=== PATIENT | female | born 1945 | race Caucasian/White ===

== ENCOUNTER 2016-05-21 10:35 | Day surgery (SDC) | payer OTHER ==
[2016-05-21] MEDS ORDERED: LR 1,000 ML IV ONE (11:19)
[2016-05-21] MEDS ORDERED: LIDOCAINE 1% 5 ML SDV ID PRN (11:19)
[2016-05-21] MEDS ORDERED: PROPOFOL 200 MG/20 ML VIAL ONE ×2 (12:05)
--- NOTE | 2016-05-21 21:23 | GPN ---
[f rep st] PROCEDURE NOTE DATE OF PROCEDURE: 05/21/2016 PROCEDURE PERFORMED: Colonoscopy with biopsy and polypectomy. INSTRUMENT USED: Olympus pediatric colonoscope. MEDICINES GIVEN: Monitored anesthesia care per the anesthesiologist. INDICATIONS: Patient is a 70-year-old due for screening colonoscopy. She has a history of failed co lonoscopy 10 years ago due to severe diverticulosis. A barium enema was normal at that time. She is now overdue for screening. Prior to procedure, exam was performed, including auscultation of heart and lungs, within normal limits. Patient's mental status is appropriate. Procedure was explained, i ncluding the risks of bleeding, perforation, and incomplete colonoscopy. She understands that there could be increased risk because of her history of having difficult procedure in the past. Risk of an esthesia was also explained. Patient gave her informed consent. OPERATIVE FINDINGS: Patient was placed in left lower decubitus position. Medicines were given via t anesthesiologist to achieve adequate sedation. Entrance through the rectum, advanced by direct vi sualization, which was technically difficult because of acute angulation, tortuous colon with multipl e diverticula, somewhat immobile colon, but with water insufflation, loop withdrawal and pressure, it was able to reach the cecum identified by the presence of ileocecal valve, appendiceal orifice, and the confluence of the taenia. From this area, the scope was slowly withdrawn with inspection of colo vicente mucosa. The prep was adequate for examination. Multiple diverticula were seen throughout the colon, but primarily in the sigmoid and descending. A polyp was seen in the sigmoid colon, measuring approximately 5 mm. This was removed by cold biopsy. It may, in fact, have been the edge of a diverticulum. A 2nd polyp was seen in the rectum, measurin g 6 mm, removed by cold biopsy, and a 3rd polyp was seen at the proximal rectum. It was pedunculated , measuring approximately 9 mm, removed by a hot snare with no bleeding. Retroflexion was normal. S cope was removed from the patient, who tolerated procedure well. Time of procedure was approximately 40 minutes. ASSESSMENT: 1. Three colon polyps as described above. 2. Significant diverticulosis. PLAN: Will await path of her colon polyps. If 3 or more polyps are adenomas, then recommend repeat colonoscopy with anesthesia in 3 years. If one or two, then repeat colonoscopy in 5 years. If no po lyp has adenomatous tissue, then repeat colonoscopy in 10 years. Recommend high-fiber diet. Recomme nd no NSAIDs for the next week, post hot snare. Thank you for this consult. /[id number]/MODL
== END 2016-05-21 14:15 | disposition home or self-care (01) ==
LOC: FSGY 10:35 → EEVIPCON 12:15 → FSGY 14:15
PROVIDERS: ATTEND Internal Medicine Gastroenterology
PROC: 0DBP8ZX Excision of Rectum, Via Natural or Artificial Opening Endoscopic, Diagnostic (ICD-10-PCS; 2016-05-21)
PROC: 0DBP8ZX Excision of Rectum, Via Natural or Artificial Opening Endoscopic, Diagnostic (ICD-10-PCS; 2016-05-21)
PROC: 0DBN8ZX Excision of Sigmoid Colon, Via Natural or Artificial Opening Endoscopic, Diagnostic (ICD-10-PCS; principal; 2016-05-21 12:15)
DX: Z12.11 Encounter for screening for malignant neoplasm of colon (principal); D12.5 Benign neoplasm of sigmoid colon; K62.1 Rectal polyp; K57.32 Diverticulitis of large intestine without perforation or abscess without bleeding; I10 Essential (primary) hypertension
CPT/HCPCS: J2704

== ENCOUNTER 2016-08-30 23:50 | Emergency (ER) | payer OTHER ==
[2016-08-31] MEDS ORDERED: NS 1,000 ML IV ONE (00:26)
[2016-08-31 00:30] LABS: % IMMATURE GRANULYOCYTES 0.4 % (0.0-1.1); ABSOLUTE IMMATURE GRANULOCYTES 0.06 10^3/uL (0.00-0.10); ADD DIFF? NO; ADD MORPH? NO; ADD SCAN? NO; ATYPICAL LYMPHOCYTE FLAG 20 (0-99); FRAGMENT RBC FLAG 0 (0-99); HEMATOCRIT 40.7 % (38.0-47.0); HEMOGLOBIN 14.1 g/dL (12.6-16.3); LEFT SHIFT FLG 0 (0-99); LIPEMIA HEMOLYSIS FLAG 90 (0-99); MEAN CELL HEMOGLOBIN 30.1 pg (27.9-34.1); MEAN CELL HEMOGLOBIN CONCENTR. 34.6 g/dL (32.4-36.7); MEAN CELL VOLUME 86.8 fL (81.5-99.8); MEAN PLATELET VOLUME 8.9 fL (8.7-11.7); PLATELET CLUMPS FLAG 0 (0-99); PLATELET COUNT 286 10^3/uL (150-400); RED BLOOD CELL COUNT 4.69 10^6/uL (4.18-5.33); RED CELL DISTRIBUTION WIDTH 13.3 % (11.5-15.2)
[2016-08-31 00:53] LABS: ANION GAP 13 mEq/L (8-16); CALCIUM 9.4 mg/dL (8.5-10.4); CARBON DIOXIDE 25 mEq/l (22-31); CHLORIDE 104 mEq/L (97-110); CREATININE 0.7 mg/dL (0.6-1.0); GLOMERULAR FILTRATION RATE > 60; GLUCOSE 127 mg/dL (70-100); POTASSIUM 4.5 mEq/L (3.5-5.2); SODIUM 142 mEq/L (134-144)
[2016-08-31] MEDS ORDERED: IOPAMIDOL (ISOVUE-300) 100 ML BTL ONE (00:57)
[2016-08-31] MEDS ORDERED: fentaNYL 100 MCG/2 ML INJ IVP ONE (01:39)
--- NOTE | 2016-08-31 02:19 | EDPHY ---
H & P Stated Complaint: abd pain hx of divorticulitis Time Seen by Provider: 08/31/16 00:03 HPI/ROS: Chief Complaint: Abdominal pain HPI: 71-year-old woman with a history of diverticulosis and diverticulitis in the past presenting with lower abdominal pain for the last week, feeling bloated. Patient states she has been having which she thought were increasing gas pains for the last couple nights. Has had decreased bowel movements. Has had subjective fever home. Patient states that feels like her prior episodes of diverticulitis. Has a constipation, no diarrhea. No nausea or vomiting. Pain is described as a 5/10. ROS: 10 point Review of Systems is negative except as noted in the HPI. PMH: Hypertension, partial small-bowel obstruction, diverticulitis Surgeries: Bilateral hips, Appendectomy, tubal ligation Medications: Lisinopril, diltiazem Allergies: No known drug allergies Social History: No smoking, occasional alcohol, no recreational drug use Family History: non-contributory Physical Exam: Gen: Awake, Alert, No Distress HEENT: Nose: no rhinorrhea Eyes: PERRLA, EOMI Mouth: Moist mucosa Neck: Supple, no JVD Chest: nontender, lungs clear to auscultation Heart: S1, S2 normal, no murmur Abd: Soft, moderate left lower and middle abdominal pain to palpation, mild guarding, voluntary Back: no CVA tenderness, no midline tenderness Ext: no edema, non-tender Skin: no rash Neuro: CN II-XII intact, Sensation grossly intact, Strength 5/5 in bilateral upper and lower extremities - Personal History Current Tetanus/Diphtheria Vaccine: Yes Current Tetanus Diphtheria and Acellular Pertussis (TDAP): Yes - Medical/Surgical History Hx Asthma: No Hx Chronic Respiratory Disease: No Hx Diabetes: No Hx Cardiac Disease: No Hx Renal Disease: No Hx Cirrhosis: No Hx Alcoholism: No Hx HIV/AIDS: No Hx Splenectomy or Spleen Trauma: No Other PMH: bilat hip replacements, HTN,. divorticulitis - Social History Smoking Status: Former smoker Constitutional: Initial Vital Signs Temperature (C) 37.2 C 08/30/16 23:53 Heart Rate 107 H 08/30/16 23:53 Respiratory Rate 18 08/30/16 23:53 Blood Pressure 173/98 H 08/30/16 23:53 O2 Sat (%) 96 08/30/16 23:53 O2 Delivery Mode Room Air Allergies/Adverse Reactions: [place] ran Allergy (Verified 08/30/16 23:56) Home Medications: Medication Instructions Recorded Diltiazem 04/23/16 Herbal Drugs 04/23/16 Lisinopril 04/23/16 Hydrocodone/Acetaminophen 1 - 2 each PO Q4-6PRN PRN #10 08/31/16 [Hydrocodon-Acetaminophen 5-325] tablet levOFLOXACIN [levAQUIN (*)] 750 mg PO DAILY #10 tab 08/31/16 Medical Decision Making - Diagnostics Imaging Results: CT scan of the abdomen pelvis shows a mild diverticulitis without evidence of perforation. She has an incidental right adnexal teratoma and prominence of her left adnexal vessels. Imaging: Discussed imaging studies w/ centrifuge operator Radiologist ED Course/Re-evaluation: 8-year-old woman with uncomplicated diverticulitis and an incidental teratoma. Will discharge her on levofloxacin orally. She will follow up with primary care physician in 2-3 days. She will need to follow up with OBGYN regarding the teratoma. Will give referral for this as well. - Data Points Laboratory Results: Laboratory Results 08/31/16 00:15 08/31/16 00:15 08/31/16 08/31/16 00:15 00:15 WBC 13.86 10^3/uL H 10^3/uL (3.80-9.50) RBC 4.69 10^6/uL 10^6/uL (4.18-5.33) Hgb 14.1 g/dL g/dL (12.6-16.3) Hct 40.7 % % (38.0-47.0) MCV 86.8 fL fL (81.5-99.8) MCH 30.1 pg pg (27.9-34.1) MCHC 34.6 g/dL g/dL (32.4-36.7) RDW 13.3 % % (11.5-15.2) Plt Count 286 10^3/uL 10^3/uL (150-400) MPV 8.9 fL fL (8.7-11.7) Neut % (Auto) 75.6 % H % (39.3-74.2) Lymph % (Auto) 10.2 % L % (15.0-45.0) Runn[place] % (Auto) 8.9 % % (4.5-13.0) Eos % (Auto) 4.3 % % (0.6-7.6) Baso % (Auto) 0.6 % % (0.3-1.7) Nucleat RBC Rel Count 0.0 % % (0.0-0.2) Absolute Neuts (auto) 10.47 10^3/uL H 10^3/uL (1.70-6.50) Absolute Lymphs (auto) 1.42 10^3/uL 10^3/uL (1.00-3.00) Absolute Monos (auto) 1.24 10^3/uL H 10^3/uL (0.30-0.80) Absolute Eos (auto) 0.59 10^3/uL H 10^3/uL (0.03-0.40) Absolute Basos (auto) 0.08 10^3/uL 10^3/uL (0.02-0.10) Absolute Nucleated RBC 0.00 10^3/uL 10^3/uL (0-0.01) Immature Gran % 0.4 % % (0.0-1.1) Immature Gran # 0.06 10^3/uL 10^3/uL (0.00-0.10) Sodium 142 mEq/L mEq/L (134-144) Potassium 4.5 mEq/L mEq/L (3.5-5.2) Chloride 104 mEq/L mEq/L (97-110) Carbon Dioxide 25 mEq/l mEq/l (22-31) Anion Gap 13 mEq/L mEq/L (8-16) BUN 11 mg/dL mg/dL (7-23) Creatinine 0.7 mg/dL mg/dL (0.6-1.0) Estimated GFR > 60 Glucose 127 mg/dL H mg/dL (70-100) Calcium 9.4 mg/dL mg/dL (8.5-10.4) Medications Given: Discontinued Medications Fentanyl (Sublimaze) 50 mcg IVP EDNOW ONE Stop: 08/31/16 01:40 Last Admin: 08/31/16 01:47 Dose: 50 mcg Sodium Chloride (Ns) 1,000 mls @ 0 mls/hr IV ONCE ONE PRN Reason: Wide Open Stop: 08/31/16 00:27 Last Admin: 08/31/16 00:40 Dose: 1,000 mls Levofloxacin (Levaquin) 750 mg PO EDNOW ONE PRN Reason: Protocol Stop: 08/31/16 02:15 Last Admin: 08/31/16 02:21 Dose: 750 mg Departure - Departure Disposition: Home, Routine, Self-Care Clinical Impression: Diverticulitis, Teratoma Condition: Good Instructions: Diverticulitis (ED) Additional Instructions: Follow with her primary care physician in 2-3 days for re-evaluation of your diverticulitis and for further follow-up with her teratoma. You may take MiraLax according to package instructions for constipation. Make sure to drink plenty of fluids. Please take her full course of antibiotics. Return to the emergency depart for increasing pain, worsening fevers or chills, uncontrolled nausea or vomiting, or any other concerns. Referrals: Dahiana Ray MD [Primary Care Provider] - As per Instructions Prescriptions: Hydrocodone/Acetaminophen [Hydrocodon-Acetaminophen 5-325] 1 - 2 each PO Q4- 6PRN PRN #10 tablet PRN Reason: Pain, Severe levOFLOXACIN [levAQUIN (*)] 750 mg PO DAILY #10 tab
[2016-08-31 02:23] VITALS: BP 164/89; PULSE 83; RESP 16; TEMP 98.2; O2SAT 95
== END 2016-08-31 02:47 | disposition home or self-care (01) ==
DX: K57.92 Diverticulitis of intestine, part unspecified, without perforation or abscess without bleeding (principal); I10 Essential (primary) hypertension; D27.0 Benign neoplasm of right ovary; Z87.891 Personal history of nicotine dependence; Z90.49 Acquired absence of other specified parts of digestive tract
CPT/HCPCS: 74177; 96361; 96374; 99285; J3010; Q9967

== ENCOUNTER → 2017-04-20 | Outpatient (CLI) | payer OTHER | LOC: FIMAGING 09:09 | PROVIDERS: ATTEND Family Medicine | DX: Z12.31 Encounter for screening mammogram for malignant neoplasm of breast (principal) ==

== ENCOUNTER 2017-05-25 14:56 | Inpatient (IN) | payer OTHER ==
[2017-05-25] MEDS ORDERED: NS 500 ML IV ONE (15:26)
--- NOTE | 2017-05-25 15:35 | EDPHY ---
H & P Time Seen by Provider: 05/25/17 15:13 HPI/ROS: HPI Disoriented, confused. 71-year-old female by private vehicle with her daughter. She and her daughter report that since about 10:30 a.m. this morning when she returned home from yoga she has been very disoriented and confused. And neighbor found the patient near her house and she was not sure where she was or what she was doing. The neighbor then called her daughter who came to her house. The patient reports that she feels confused, she has lost her short term memory, she feels very disoriented with time and place. She also describes having some intermittent sweats and a sensation of her heart racing. She and her daughter described her as normally being very sharp and oriented. Very self-sufficient. Her daughter who was with her yesterday described her at that time as normal. The patient denies any other associated signs or symptoms. No other aggravating or relieving factors. No new medications. No change in diet. ROS: Constitutional: No fever, no chills. No weakness. As above Eyes: No discharge. No changes in vision. ENT: No sore throat. No nasal congestion or rhinorrhea. Respiratory: No cough. No shortness of breath. Cardiac: No chest pain, as above. Gastrointestinal: No abdominal pain, no vomiting, no diarrhea. Genitourinary: No hematuria. No dysuria or increased frequency with urination. Musculoskeletal: No back pain. No neck pain. No myalgias or arthralgias. Skin: No rashes. Neurological: No headache. No focal weakness or altered sensation. Past medical history: Hypertension, diverticulitis, bilateral hip replacements. Primary care is through [facility]. Contacted [facility], verified hypertension medication dosing, she takes 120 mg of diltiazem XR and 10 mg of lisinopril daily for her blood pressure. However, she cannot remember if she took these medications today. Social history: Nonsmoker. She lives by herself currently. She is very physically active. No alcohol. Her daughter lives nearby. Physical Exam: General Appearance: Alert, no distress. This patient is responding to questions appropriately and in full sentences. This patient appears well- hydrated and well-nourished. Eyes: Pupils equal and round no pallor or injection. No lid edema, erythema or injection. Respiratory: There are no retractions, lungs are clear to auscultation with good air movement bilaterally. Cardiovascular: Regular rate and rhythm. No tachycardia on my exam. No murmur. Gastrointestinal: Abdomen is soft and nontender, no masses, bowel sounds normal. No focal tenderness at McBurney's point. No Munoz sign. Neurological: Motor sensory function is grossly intact. Cranial nerves are normal. Cerebellar function, [id number], [id number] normal, Gait is normal. Skin: Warm and dry, no rashes. Musculoskeletal: Neck is supple and nontender. No pain on flexion of her neck. Extremities are symmetrical. All joints range without pain or impingement. Psychiatric: No agitation. No depression. Database: EKG: EKG time is 3:46 p.m.; EKG shows a narrow complex normal sinus rhythm with a ventricular rate of 83. The MO, QRS, QT intervals are within normal limits. There are no ST-T wave changes indicative of ischemic or injury pattern. No evidence of right heart strain. Interpreted by me. Imaging: CT scan without contrast: Negative. Results were discussed with staff radiologist Dr. Antonio Serrano. CT angio head neck: Negative. Results were discussed with staff radiologist Dr. Leonardo Adrian. Diffusion-weighted MRI of brain without contrast: Essentially negative. Mild atrophy, microvascular changes. Results were discussed with staff radiologist Dr. Devaughn Chaudhary. Procedures: Emergency department course: IV established. Vital signs reviewed. The patient is markedly hypertensive with a blood pressure of 207/116. She is mildly tachycardic in triage with a heart rate of 103. EKG obtained and reviewed by myself. Patient consents to imaging CT of the head, blood in urine studies. I discussed differential diagnosis with the patient and her daughter. As noted above, her hypertension medication dosing was verified. She will be given 120 mg of diltiazem extended-release and 10 mg of lisinopril orally for control of her blood pressure. 3:50 p.m., blood pressure 177/100. 4:45 p.m., patient just returned from the bathroom. Repeat neurologic Assessment is nonfocal. She still complains of feeling confused and her daughter states that she is repeating the same things over and over again. The patient describes having difficulty differentiating reality from non reality. Neurology paged. Noncontrast MRI ordered. 5:00 p.m., spoke with neurologist Dr. Hylton. He agrees with above management. Plan will likely be to admit to hospitalist with Neurology to consult. 5:15 p.m., patient re-evaluated. She is now complaining of some right lower extremity weakness on my examination she has 4/5 right upper extremity and 3/5 right lower extremity weakness. Sensory function is intact. Neurologic Assessment other than her ongoing confusion and perseveration is otherwise normal. She will be sent for a stat CT angiogram of the head neck. [facility] paged. Onset of symptoms 10:00 a.m. to 10:30 a.m. as far as her disorientation and confusion. 5:30 p.m., blood pressure currently 159/109, cardiac cath rn shows a sinus rhythm with ventricular rate of 98. 5:35 p.m., spoke with [facility] neurologist Dr. Bell. She agrees with above management as noted CT angiogram of head neck followed by MRI of brain if CT angiogram negative. Because this patient's onset of symptoms was at 10:00 a.m. to 10:15 a.m. this morning and despite the fact that she has new weakness in the right upper extremity and right lower extremity, she is now outside of the tPA administration window. She therefore will not be made a stroke alert at this time. 6:45 p.m., patient currently in the MRI suite. Results of CT angiogram of brain and neck discussed. MRI diffusion-weighted noncontrast has been ordered and will be obtained shortly. Hospitalist paged for admission. 7:00 p.m., spoke with Dr. Robertson of the hospitalist service. Case discussed in detail. He accepts the patient for admission. 7:50 p.m., patient re-evaluated. Results of MRI, other imaging and emergency department workup reviewed with her and her daughter. Repeat neurologic Assessment I do not appreciate any asymmetric weakness in the right upper and right lower extremity at this time. Her thought process appears to have cleared. Her blood pressure currently is 158/94. Her remaining emergency department course under my care has been uneventful. She was admitted to the hospitalist service in stable and improved condition. Neurology to consult in the morning. Differential Diagnosis: The differential diagnosis on this patient includes but is not limited to hypertensive emergency with hypertensive encephalopathy, new onset dementia, transient global amnesia, CVA, hyperthyroidism, urinary tract infection. This represents a partial list of diagnoses considered. These considerations are based on history, physical exam, past history, reassessment and diagnostic testing. Smoking Status: Former smoker Constitutional: Initial Vital Signs Temperature (C) 36.8 C 05/25/17 15:03 Heart Rate 103 H 05/25/17 15:03 Respiratory Rate 16 05/25/17 15:03 Blood Pressure 207/116 H 05/25/17 15:03 O2 Sat (%) 96 05/25/17 15:03 O2 Delivery Mode Room Air Allergies/Adverse Reactions: [place] ran Allergy (Verified 08/30/16 23:56) Home Medications: Medication Instructions Recorded Diltiazem Cd [Cardizem ER 120 MG 120 mg PO DAILY 04/23/16 (*)] Lisinopril [Zestril 10 mg (*)] 10 mg PO DAILY 04/23/16 Aspirin EC [Aspirin EC 81 mg (*)] 81 mg PO DAILY 05/25/17 Cholecalciferol Vit D3 [Vitamin D3 2,000 units PO DAILY 05/25/17 (*)] Herbals/Supplements -Info Only 1 ea PO DAILY 05/25/17 Multivitamins [Multivitamin (*)] 1 each PO DAILY 05/25/17 Medical Decision Making - Diagnostics Imaging Results: Imaging Impressions Head CT 05/25/17 15:26 Impression: Negative. No acute intracranial hemorrhage, ischemia, or mass. Findings discussed with Emergency Department physician, Alex Flowers MD on 05/25/2017, 16:35. Head CTA 05/25/17 17:18 Impression: Negative CT angiography of the neck with no arterial occlusive disease identified. CT Angiography of the Head With Attention to the [place] Reason for examination: Altered mental status and upper and lower extremity weakness; evaluate for arterial occlusive disease. Technique: A spiral acquisition was performed from the base of the brain to the vertex during rapid intravenous administration of 85 mL of Isovue-370. This contrast volume was utilized for evaluation of the neck and head. Axial images are obtained at 0.6 mm thickness and the examination is reviewed on the workstation in multiple window and level settings. Sagittal and coronal reformats are performed and three-dimensional reformations are performed by the radiologist on the workstation. Dose reduction techniques were utilized. Findings: There is excellent arterial opacification. The great vessels at the base of the brain are normal in appearance. The anterior and middle cerebral arteries appear normal. The [place] is intact with both anterior and posterior communicating arteries identified. The basilar artery as well as posterior cerebral arteries are normal. No regions of stenosis are identified. No hemorrhages are seen and no vascular malformations are identified. No areas of abnormal perfusion are identified and there are no findings to suggest cortical ischemia. Impression: Normal CT angiography of the head with attention to the great vessels of the [place]. Note: All stenoses are calculated using NASCET Criteria. Results called and discussed with Alex Flowers MD on 05/25/2017 at 18: 42 Neck CTA 05/25/17 17:18 Impression: Negative CT angiography of the neck with no arterial occlusive disease identified. CT Angiography of the Head With Attention to the [place] Reason for examination: Altered mental status and upper and lower extremity weakness; evaluate for arterial occlusive disease. Technique: A spiral acquisition was performed from the base of the brain to the vertex during rapid intravenous administration of 85 mL of Isovue-370. This contrast volume was utilized for evaluation of the neck and head. Axial images are obtained at 0.6 mm thickness and the examination is reviewed on the workstation in multiple window and level settings. Sagittal and coronal reformats are performed and three-dimensional reformations are performed by the radiologist on the workstation. Dose reduction techniques were utilized. Findings: There is excellent arterial opacification. The great vessels at the base of the brain are normal in appearance. The anterior and middle cerebral arteries appear normal. The [place] is intact with both anterior and posterior communicating arteries identified. The basilar artery as well as posterior cerebral arteries are normal. No regions of stenosis are identified. No hemorrhages are seen and no vascular malformations are identified. No areas of abnormal perfusion are identified and there are no findings to suggest cortical ischemia. Impression: Normal CT angiography of the head with attention to the great vessels of the [place]. Note: All stenoses are calculated using NASCET Criteria. Results called and discussed with Alex Flowers MD on 05/25/2017 at 18: 42 - Data Points Laboratory Results: Laboratory Results 05/25/17 15:41 05/25/17 15:41 05/25/17 05/25/17 05/25/17 15:41 15:41 15:41 WBC 6.32 10^3/uL 10^3/uL (3.80-9.50) RBC 4.42 10^6/uL 10^6/uL (4.18-5.33) Hgb 13.7 g/dL g/dL (12.6-16.3) Hct 38.4 % % (38.0-47.0) MCV 86.9 fL fL (81.5-99.8) MCH 31.0 pg pg (27.9-34.1) MCHC 35.7 g/dL g/dL (32.4-36.7) RDW 13.3 % % (11.5-15.2) Plt Count 285 10^3/uL 10^3/uL (150-400) MPV 8.7 fL fL (8.7-11.7) Neut % (Auto) 67.7 % % (39.3-74.2) Lymph % (Auto) 14.9 % L % (15.0-45.0) [place] % (Auto) 8.7 % % (4.5-13.0) Eos % (Auto) 7.1 % % (0.6-7.6) Baso % (Auto) 1.3 % % (0.3-1.7) Nucleat RBC Rel Count 0.0 % % (0.0-0.2) Absolute Neuts (auto) 4.28 10^3/uL 10^3/uL (1.70-6.50) Absolute Lymphs (auto) 0.94 10^3/uL L 10^3/uL (1.00-3.00) Absolute Monos (auto) 0.55 10^3/uL 10^3/uL (0.30-0.80) Absolute Eos (auto) 0.45 10^3/uL H 10^3/uL (0.03-0.40) Absolute Basos (auto) 0.08 10^3/uL 10^3/uL (0.02-0.10) Absolute Nucleated RBC 0.00 10^3/uL 10^3/uL (0-0.01) Immature Gran % 0.3 % % (0.0-1.1) Immature Gran # 0.02 10^3/uL 10^3/uL (0.00-0.10) PT 13.3 SEC SEC (12.0-15.0) INR 0.99 (0.83-1.16) APTT 32.2 SEC SEC (23.0-38.0) Sodium 140 mEq/L mEq/L (135-145) Potassium 3.6 mEq/L mEq/L (3.5-5.2) Chloride 103 mEq/L mEq/L (97-110) Carbon Dioxide 24 mEq/l mEq/l (22-31) Anion Gap 13 mEq/L mEq/L (8-16) BUN 13 mg/dL mg/dL (7-23) Creatinine 0.7 mg/dL mg/dL (0.6-1.0) Estimated GFR > 60 Glucose 135 mg/dL H mg/dL (70-100) Calcium 9.9 mg/dL mg/dL (8.5-10.4) Total Bilirubin 0.5 mg/dL mg/dL (0.1-1.4) Conjugated Bilirubin 0.2 mg/dL mg/dL (0.0-0.5) Unconjugated Bilirubin 0.3 mg/dL mg/dL (0.0-1.1) AST 27 IU/L IU/L (14-46) ALT 35 IU/L IU/L (9-52) Alkaline Phosphatase 84 IU/L IU/L (38-126) Troponin I < 0.012 ng/mL ng/mL (0.000-0.034) Total Protein 7.1 g/dL g/dL (6.3-8.2) Albumin 4.2 g/dL g/dL (3.5-5.0) TSH 2.590 uIU/mL uIU/mL (0.465-4.680) Urine Color Urine Appearance Urine pH Ur Specific [place] Urine Protein Urine Ketones Urine Blood Urine Nitrate Urine Bilirubin Urine Urobilinogen Ur Leukocyte Esterase Urine RBC Urine WBC Ur Epithelial Cells Urine Glucose Urine Opiates Screen Urine Barbiturates Ur Phencyclidine Scrn Ur Amphetamine Screen U Benzodiazepines Scrn Urine Cocaine Screen U Marijuana (THC) Screen Ethyl Alcohol < 10 mg/dL mg/dL (0-10) 05/25/17 15:10 WBC RBC Hgb Hct MCV MCH MCHC RDW Plt Count MPV Neut % (Auto) Lymph % (Auto) [place] % (Auto) Eos % (Auto) Baso % (Auto) Nucleat RBC Rel Count Absolute Neuts (auto) Absolute Lymphs (auto) Absolute Monos (auto) Absolute Eos (auto) Absolute Basos (auto) Absolute Nucleated RBC Immature Gran % Immature Gran # PT INR APTT Sodium Potassium Chloride Carbon Dioxide Anion Gap BUN Creatinine Estimated GFR Glucose Calcium Total Bilirubin Conjugated Bilirubin Unconjugated Bilirubin AST ALT Alkaline Phosphatase Troponin I Total Protein Albumin TSH Urine Color PALE YELLOW Urine Appearance CLEAR Urine pH 7.0 (5.0-7.5) Ur Specific [place] 1.004 (1.002-1.030) Urine Protein NEGATIVE (NEGATIVE) Urine Ketones NEGATIVE (NEGATIVE) Urine Blood NEGATIVE (NEGATIVE) Urine Nitrate NEGATIVE (NEGATIVE) Urine Bilirubin NEGATIVE (NEGATIVE) Urine Urobilinogen NEGATIVE EU EU (0.2-1.0) Ur Leukocyte Esterase NEGATIVE (NEGATIVE) Urine RBC 1-3 /hpf /hpf (0-3) Urine WBC 1-3 /hpf /hpf (0-3) Ur Epithelial Cells TRACE /lpf /lpf (NONE-1+) Urine Glucose NEGATIVE (NEGATIVE) Urine Opiates Screen NEGATIVE (NEGATIVE) Urine Barbiturates NEGATIVE (NEGATIVE) Ur Phencyclidine Scrn NEGATIVE (NEGATIVE) Ur Amphetamine Screen NEGATIVE (NEGATIVE) U Benzodiazepines Scrn NEGATIVE (NEGATIVE) Urine Cocaine Screen NEGATIVE (NEGATIVE) U Marijuana (THC) Screen NEGATIVE (NEGATIVE) Ethyl Alcohol Medications Given: Discontinued Medications Diltiazem HCl (Cardizem Er Q24hr) 120 mg PO EDNOW ONE Stop: 05/25/17 16:01 Last Admin: 05/25/17 16:06 Dose: 120 mg Sodium Chloride (Ns) 500 mls @ 0 mls/hr IV ONCE ONE; Wide Open PRN Reason: Protocol Stop: 05/25/17 15:27 Last Admin: 05/25/17 15:44 Dose: 500 mls Lisinopril (Zestril) 10 mg PO EDNOW ONE Stop: 05/25/17 15:47 Last Admin: 05/25/17 15:57 Dose: 10 mg Departure - Departure Disposition: [facility] Acute Clinical Impression: Confusion state, Possible hypertensive encephalopathy, Possible CVA
--- NOTE | 2017-05-25 15:48 | CPEKG ---
Heart Rate: 83 RR Interval: 723 P-R Interval: 172 QRSD Interval: 94 QT Interval: 376 QTC Interval: 442 P [place]: 57 QRS [place]: 55 T Wave [place]: 46 EKG Severity - ABNORMAL ECG - EKG Impression: POSSIBLE ATRIAL ARRHYTHMIA, A-RATE 169 Electronically Signed By: Alex Flowers 25-May-2017 22:33:45
[2017-05-25 15:54] LABS: PLATELET COUNT 285 10^3/uL (150-400)
[2017-05-25] MEDS: LISINOPRIL 20 MG TAB PO ONE (15:57)
[2017-05-25] MEDS ORDERED: DILTIAZEM CD 120 MG CAP PO ONE (16:00)
[2017-05-25 16:07] LABS: INR 0.99 (0.83-1.16); PROTIME(PATIENT) 13.3 SEC (12.0-15.0)
[2017-05-25] MEDS ORDERED: IOPAMIDOL (ISOVUE 370) 100 ML BTL IV ONE (18:12)
[2017-05-25] MEDS ORDERED: ONDANSETRON 4 MG/2 ML VIAL IVP PRN (23:14)
[2017-05-25] MEDS ORDERED: ONDANSETRON DISINTEGRATING 4 MG TAB PO PRN (23:14)
[2017-05-25] MEDS ORDERED: ACETAMINOPHEN 325 MG TAB PO PRN (23:14)
[2017-05-25] MEDS ORDERED: hydrALAZINE 20 MG/ML VIAL IVP PRN (23:16)
--- NOTE | 2017-05-25 23:23 | PDGENHP ---
History and Physical - Chief Complaint confussion - History of Present Illness 71 yo female with acute confusion this morning, presented to the E.D. They report that about 10:30 a.m. this morning when she returned home from yoga she has been very disoriented and confused. And neighbor found the patient near her house and she was not sure where she was or what she was doing. The neighbor then called her daughter who came to her house. The patient reported that she feels confused, she has lost her short term memory, she feels very disoriented with time and place. She also describes having some intermittent sweats and a sensation of her heart racing. Per reports, she is normally very sharp and oriented. Very self-sufficient. In the ED she was found to have a BP of 207/116 and this was decreased with the pts home medications. she also developed RUE and RLE weakness which prompted a [facility] consult as well as CTA Brain and neck all of which were normal. She also had a brain MRI and this was unremarkable for acute finding. At the time of my examination, her RUE weakness has resolved and she is back to baseline. However she continues to have RLE weakness mostly with dorsiflexion of foot and flexion of knee. Her confusion has resolved as well. Past medical history: Hypertension, diverticulitis, bilateral hip replacements. Social history: Nonsmoker. She lives by herself currently. She is very physically active. No alcohol. Her daughter lives nearby. She is originally from [place] History Information - Allergies/Home Medication List Allergies/Adverse Reactions: [place] ran Allergy (Verified 08/30/16 23:56) Home Medications: Diltiazem Cd [Cardizem ER 120 MG (*)] 120 mg PO DAILY 04/23/16 [Last Taken 05/25 07:30] Lisinopril [Zestril 10 mg (*)] 10 mg PO DAILY 04/23/16 [Last Taken 05/25/17 07: 30] Aspirin EC [Aspirin EC 81 mg (*)] 81 mg PO DAILY 05/25/17 [Last Taken 05/24/17] Cholecalciferol Vit D3 [Vitamin D3 (*)] 2,000 units PO DAILY 05/25/17 [Last Taken 05/25/17] Herbals/Supplements -Info Only 1 ea PO DAILY 05/25/17 [Last Taken 05/25/17] Multivitamins [Multivitamin (*)] 1 each PO DAILY 05/25/17 [Last Taken 05/25/17] I have personally reviewed and updated: medical history, social history - Social History Smoking Status: Former smoker Review of Systems Review of Systems: ROS: 10pt was reviewed & negative except for what was stated in HPI & below Physical Exam Physical Exam: Temp Pulse Resp BP Pulse Ox 37.5 C 79 15 161/97 H 96 05/25/17 19:26 05/25/17 22:00 05/25/17 22:00 05/25/17 22:00 05/25/17 22:00 Constitutional: no apparent distress Eyes: PERRL Ears, Nose, Mouth, Throat: moist mucous membranes, hearing normal Cardiovascular: regular rate and rhythym, No edema Respiratory: no respiratory distress, no rales or rhonchi Gastrointestinal: normoactive bowel sounds, soft, non-tender abdomen Skin: warm Neurologic: AAOx3, CN II-XII Intact, other (RUE strenght: 5/5, RLE strength 3-4/ 5 mostly with dorsiflexion and knee flexion. ), No facial droop Psychiatric: interacting appropriately, not anxious, not encephalopathic Lymph, Heme, Immunologic: No petechiae Lab Data & Imaging Review 05/25/17 15:41 05/25/17 15:41 WBC 6.32 10^3/uL (3.80-9.50) 05/25/17 15:41 RBC 4.42 10^6/uL (4.18-5.33) 05/25/17 15:41 Hgb 13.7 g/dL (12.6-16.3) 05/25/17 15:41 Hct 38.4 % (38.0-47.0) 05/25/17 15:41 MCV 86.9 fL (81.5-99.8) 05/25/17 15:41 MCH 31.0 pg (27.9-34.1) 05/25/17 15:41 MCHC 35.7 g/dL (32.4-36.7) 05/25/17 15:41 RDW 13.3 % (11.5-15.2) 05/25/17 15:41 Plt Count 285 10^3/uL (150-400) 05/25/17 15:41 MPV 8.7 fL (8.7-11.7) 05/25/17 15:41 Neut % (Auto) 67.7 % (39.3-74.2) 05/25/17 15:41 Lymph % (Auto) 14.9 % (15.0-45.0) L 05/25/17 15:41 [place] % (Auto) 8.7 % (4.5-13.0) 05/25/17 15:41 Eos % (Auto) 7.1 % (0.6-7.6) 05/25/17 15:41 Baso % (Auto) 1.3 % (0.3-1.7) 05/25/17 15:41 Nucleat RBC Rel Count 0.0 % (0.0-0.2) 05/25/17 15:41 Absolute Neuts (auto) 4.28 10^3/uL (1.70-6.50) 05/25/17 15:41 Absolute Lymphs (auto) 0.94 10^3/uL (1.00-3.00) L 05/25/17 15:41 Absolute Monos (auto) 0.55 10^3/uL (0.30-0.80) 05/25/17 15:41 Absolute Eos (auto) 0.45 10^3/uL (0.03-0.40) H 05/25/17 15:41 Absolute Basos (auto) 0.08 10^3/uL (0.02-0.10) 05/25/17 15:41 Absolute Nucleated RBC 0.00 10^3/uL (0-0.01) 05/25/17 15:41 Immature Gran % 0.3 % (0.0-1.1) 05/25/17 15:41 Immature Gran # 0.02 10^3/uL (0.00-0.10) 05/25/17 15:41 PT 13.3 SEC (12.0-15.0) 05/25/17 15:41 INR 0.99 (0.83-1.16) 05/25/17 15:41 APTT 32.2 SEC (23.0-38.0) 05/25/17 15:41 Sodium 140 mEq/L (135-145) 05/25/17 15:41 Potassium 3.6 mEq/L (3.5-5.2) 05/25/17 15:41 Chloride 103 mEq/L (97-110) 05/25/17 15:41 Carbon Dioxide 24 mEq/l (22-31) 05/25/17 15:41 Anion Gap 13 mEq/L (8-16) 05/25/17 15:41 BUN 13 mg/dL (7-23) 05/25/17 15:41 Creatinine 0.7 mg/dL (0.6-1.0) 05/25/17 15:41 Estimated GFR > 60 05/25/17 15:41 Glucose 135 mg/dL (70-100) H 05/25/17 15:41 Calcium 9.9 mg/dL (8.5-10.4) 05/25/17 15:41 Total Bilirubin 0.5 mg/dL (0.1-1.4) 05/25/17 15:41 Conjugated Bilirubin 0.2 mg/dL (0.0-0.5) 05/25/17 15:41 Unconjugated Bilirubin 0.3 mg/dL (0.0-1.1) 05/25/17 15:41 AST 27 IU/L (14-46) 05/25/17 15:41 ALT 35 IU/L (9-52) 05/25/17 15:41 Alkaline Phosphatase 84 IU/L (38-126) 05/25/17 15:41 Troponin I < 0.012 ng/mL (0.000-0.034) 05/25/17 15:41 Total Protein 7.1 g/dL (6.3-8.2) 05/25/17 15:41 Albumin 4.2 g/dL (3.5-5.0) 05/25/17 15:41 TSH 2.590 uIU/mL (0.465-4.680) 05/25/17 15:41 Urine Color PALE YELLOW 05/25/17 15:10 Urine Appearance CLEAR 05/25/17 15:10 Urine pH 7.0 (5.0-7.5) 05/25/17 15:10 Ur Specific [place] 1.004 (1.002-1.030) 05/25/17 15:10 Urine Protein NEGATIVE (NEGATIVE) 05/25/17 15:10 Urine Ketones NEGATIVE (NEGATIVE) 05/25/17 15:10 Urine Blood NEGATIVE (NEGATIVE) 05/25/17 15:10 Urine Nitrate NEGATIVE (NEGATIVE) 05/25/17 15:10 Urine Bilirubin NEGATIVE (NEGATIVE) 05/25/17 15:10 Urine Urobilinogen NEGATIVE EU (0.2-1.0) 05/25/17 15:10 Ur Leukocyte Esterase NEGATIVE (NEGATIVE) 05/25/17 15:10 Urine RBC 1-3 /hpf (0-3) 05/25/17 15:10 Urine WBC 1-3 /hpf (0-3) 05/25/17 15:10 Ur Epithelial Cells TRACE /lpf (NONE-1+) 05/25/17 15:10 Urine Glucose NEGATIVE (NEGATIVE) 05/25/17 15:10 Urine Opiates Screen NEGATIVE (NEGATIVE) 05/25/17 15:10 Urine Barbiturates NEGATIVE (NEGATIVE) 05/25/17 15:10 Ur Phencyclidine Scrn NEGATIVE (NEGATIVE) 05/25/17 15:10 Ur Amphetamine Screen NEGATIVE (NEGATIVE) 05/25/17 15:10 U Benzodiazepines Scrn NEGATIVE (NEGATIVE) 05/25/17 15:10 Urine Cocaine Screen NEGATIVE (NEGATIVE) 05/25/17 15:10 U Marijuana (THC) Screen NEGATIVE (NEGATIVE) 05/25/17 15:10 Ethyl Alcohol < 10 mg/dL (0-10) 05/25/17 15:41 Assessment & Plan Assessment: #Encephalopathy, waxing and weaning #Right Lower extremity weakness, no e/o acute event on imaging #Right Upper Extremity weakness #Hypertensive emergency with possible neuro deficits as a result Plan: Admit observation Overall her BP is much improved at this time. Will continue with home meds. Would not drop her BP further at this time if it can be avoided. Use PRN Hydralazine Neuro consult in a.m Tele TTE Cont aspirin PT/OT Full code
[2017-05-25] MEDS: ASPIRIN 81 MG CHEWABLE TAB PO ONE (23:24)
[2017-05-26 06:22] LABS: PLATELET COUNT 271 10^3/uL (150-400)
[2017-05-26] MEDS ORDERED: Herbals/Supplements -Info Only PO SCH (09:00)
[2017-05-26] MEDS ORDERED: ASPIRIN 81 MG CHEWABLE TAB ONE (09:17)
[2017-05-26] MEDS ORDERED: LISINOPRIL 20 MG TAB ONE (09:17)
[2017-05-26] MEDS: LISINOPRIL 20 MG TAB PO ONE (09:33)
[2017-05-26] MEDS: DILTIAZEM CD 120 MG CAP PO SCH (09:33)
[2017-05-26] MEDS: ASPIRIN 81 MG CHEWABLE TAB PO ONE (09:34)
[2017-05-26] MEDS: MULTIVITAMINS 1 EACH TAB PO SCH (09:34)
[2017-05-26] MEDS: CHOLECALCIFEROL VIT D3 1,000 UNITS TAB PO SCH (09:34)
--- NOTE | 2017-05-26 09:35 | NEUROPROG ---
Assessment: HOSPITAL NEUROLOGY CONSULT REQUESTING: Weston Robertson MD REASON: AMS HPI: 71 year old right-handed woman with a history of HTN presented to our ED yesterday with AMS. She was at yoga and around 10:30 at the conclusion of class became disoriented and confused. She was found by neighbors wandering around the area outside her house confused and disoriented. Daughter arrived at patient's home corroborating the patient's disoriented status. No indication of gait change, language/speech disturbance. No MAR endorsed. No sensory loss. She was brought to our ED. Patient had been endorsing sweats, palpitations and racing heart during the events. On intake, her SBPs were found to be in the 200s. There was also an indication of RUE and RLE weakness. BP was lowered with medication and the patient's symptoms have improved. She is cognitively back to baseline. She still feels weak in the RLE. No prior history of stroke/TIA. She states she is followed by her PCP for her BP - she is unsure if she took her BP meds on the day of admission. CT head wo in the ED was unremarkable. CTA head/neck was normal. MRI brain wo in the ED showed moderate chronic microvascular ischemic change in the subcortical white matter, but nothing acute. ROS: As per the HPI, otherwise a complete 12 point ROS was performed and is negative ALLERGIES AND MEDS: As recorded in the EMR - reviewed and reconciled PFSH: As per the intake H&P by Dr. Robertson from 05/25. EXAM: VS reviewed in EMR GEN: WDWN laying in NAD HEENT: NCAT, sclera anicteric, conjunctiva not injected, MMM, oropharynx clear, no scalp tenderness NECK: supple, nontender, no meningismus CV: RRR s1 s2 wo m/r/c/g. Carotid pulses 2+ wo bruit NEURO: MS: awake, alert, oriented to all spheres. Speech nondysarthric. No language disturbance. Follows commands. Attends to both sides. Recent/remote memory grossly intact. Mood euthymic. Good fund of knowledge. CN: pupils 3mm round and reactive. Fundi with sharp discs. VFF. Primary gaze centered. Full ocular motility. Facial sensation preserved. Face symmetric. Hearing grossly intact to finger rub. Palatoglossal movements intact. Shoulder shrug and head turn strong. MOTOR: normal bulk/tone. No adventitial movements. She has profound giveway weakness in the RLE groups, but on distraction she maintains sustention of RLE and is seen shifting her body pushing the RLE into the bed with good effort and strength. On repeat testing with encouragement, she has full power in the RLE. SENSORY: intact/symmetric LT/PP throughout. No extinction. COORD: no ataxia FN/HS. Emigdio preserved. REFLEX: plantars down. No clonus. DTRS 2/4. GAIT: deferred to PT safety eval DATA REVIEW: Labs reviewed in EMR PERSONALLY INTERPRETED RESULTS AND DATA: CT head wo, CTA head/neck, MRI brain wo as per the HPI IMPRESSION AND RECOMMENDATIONS: // HTN EMERGENCY Patient with mental status/cognitive change and right-sided weakness lasting hours on end, resolved with intervention of her profoundly elevated BP. Her imaging was normal despite hours of symptoms, so unlikely TIA. Given resolution of symptoms with intervention of BP, and her unremarkable imaging, very much suspect HTN emergency. Her ongoing RLE weakness seems more behavioral. Would continue ongoing BP optimization per primary team and with her PCP as an outpatient. Continue daily ASA given chronic microvascular ischemic changes on MRI and her accelerated BP event. PT eval for gait assessment. Followup with her PCP after discharge. Will sign off. Please recall PRN. Objective: Vital Signs Temp Pulse Resp BP Pulse Ox 37.5 C 78 18 131/99 H 97 05/25/17 19:26 05/26/17 06:00 05/26/17 06:00 05/26/17 06:00 05/26/17 06:00 Laboratory Results 05/26/17 06:03 05/26/17 06:03 PT 13.3 SEC (12.0-15.0) 05/25/17 15:41 INR 0.99 (0.83-1.16) 05/25/17 15:41 Allergies/Adverse Reactions: balsam ran Allergy (Verified 08/30/16 23:56)
--- NOTE | 2017-05-26 10:36 | ECHO ---
[email or web address] [address] [address] Main: [phone] Fax: Transthoracic Echocardiogram Name: JOSE EDUARDO OLEARY MR#: [id number] Study Date: 05/26/2017 Study Time: 08:04 AM Date of : 1945 Age: 71 year(s) Height: 160 cm (63 in.) Weight: 47.17 kg (104 lb.) BSA: 1.46 m2 Gender: Female Examination: Echo Indication: TIA vs CVA, confusion Image Quality: Contrast: Requested by: Wseton Robertson BP: 131 mmHg/99 mmHg Heart Rate: Rhythm: Normal sinus rhythm Indication: TIA vs CVA, confusion Procedure Staff Asbestos Coverer: Filiberto Santana [facility] Reading Physician: Carroll Mahoney Requesting Provider: Conclusions: Normal size left ventricle. Normal global systolic LV function. EF is 67 %. No regional wall motion abnormality. Diastolic dysfunction is present. . There are multiple left ventricular false tendons.. The left atrium is mildly dilated. Trivial mitral valve regurgitation. The descending thoracic aorta appears to be mildly dilated. Measurements: Chambers Valvular Assessment AV/MV Valvular Assessment TV/PV Normal Normal Normal Name Value Range Name Value Range Name Value Range Ao Dariana (MM): 3.0 cm (2.2 cm-3.7 AV Vmax: 1.28 m/s (1 m/s-1.7 TR Vmax: 3.41 mm/s ( - ) cm) m/s) TR PGmax: 47 mmHg ( - ) IVSd (2D): 0.7 cm (0.6 cm-1.1 AV maxP mmHg ( - ) syst. PAP: 52 mmHg ( - ) cm) LVOT Vmax: 1.00 m/s (0.7 m/s-1.1 PV Vmax: 0.99 m/s (0.6 m/s-0.9 LVDd (2D): 4.5 cm (3.9 cm-5.3 m/s) m/s) cm) MV E Vmax: 0.65 m/s ( - ) PV PGmax: 4 mmHg ( - ) LVDs (2D): 2.8 cm (2.1 cm-4 MV A Vmax: 0.78 m/s ( - ) cm) MV E/A: 0.83 ( - ) LVPWd (2D): 0.7 cm ( - ) LVEF (2D): 67 (>=54 %) Continued Measurements: Chambers Valvular Assessment AV/MV Valvular Assessment TV/PV Name Value Name Value Name Value Patient: JOSE EDUARDO OLEARY Study Date: 05/26/2017 Page 1 of 2 08:04 AM LADs Lon.3 cm MV E/E' Septal: 10.40 CVP (est.): 5 mmHg LA Area: 12.1 cm2 LA Volume: 29 ml LA Volume Index: 19.9 ml/m2 Findings: Left Ventricle: Normal size left ventricle. No LV hypertrophy. Normal global systolic LV function. EF is 67 %. No regional wall motion abnormality. Diastolic dysfunction is present. . There are multiple left ventricular false tendons.. Right Ventricle: Normal size right ventricle. Left Atrium: The left atrium is mildly dilated. Right Atrium: The right atrium is normal in size. Mitral Valve: The mitral valve is normal in appearance. Trivial mitral valve regurgitation. Aortic Valve: The aortic valve is tri-leaflet and functions normally. There is no aortic valve regurgitation. Tricuspid Valve: The tricuspid valve is normal in appearance and function. Pulmonic Valve: The pulmonic valve is normal in appearance and function. Aorta: The aorta is normal. Pericardium: No pericardial effusion. (No Signature Object) Patient: JOSE EDUARDO OLEARY Study Date: 05/26/2017 Page 2 of 2 08:04 AM [id number]
[2017-05-26] MEDS: ASPIRIN EC 81 MG TAB PO SCH (12:37)
[2017-05-26] MEDS: LISINOPRIL 10 MG TAB PO SCH (12:38)
[2017-05-26] MEDS ORDERED: LISINOPRIL 10 MG TAB PO ONE (12:43)
--- NOTE | 2017-05-26 12:54 | HOSPPROG ---
Hospitalist Progress Note Assessment/Plan: # hypertensive emergency - better now - consider pheo (see history below of recent NE tumor resection) - check labs - check 5-HIAA - check cortisol - increase lisino 10->20, cont dilt # leg weakness - check lumbar MRI # history of teratoma and carcinoid tumor resection recently at - check CT abd/pelvis # encephalopathy - resolved, d/t htn likely Subjective: feels better, almopst back to normal; leg still weak; shares significant history about a recent teratoma and carcinoid tumor resection Objective: Vital Signs Temp Pulse Resp BP Pulse Ox 36.9 C 59 L 18 135/85 H 97 05/26/17 12:00 05/26/17 12:00 05/26/17 12:00 05/26/17 12:00 05/26/17 12:00 Laboratory Results 05/26/17 06:03 05/26/17 06:03 05/25/17 05/26/17 05/27/17 05:59 05:59 05:59 Intake Total 500 Balance 500 PT 13.3 SEC (12.0-15.0) 05/25/17 15:41 INR 0.99 (0.83-1.16) 05/25/17 15:41 - Time Spent With Patient Time Spent with Patient: greater than 35 minutes Time Spent with Patient: Greater than 35 minutes spent on this patients care, greater than 50% of time spent counseling, educating, and coordinating care regarding the above mentioned plan. - Physical Exam Constitutional: no apparent distress, appears nourished Cardiovascular: regular rate and rhythym, no murmur, rub, or gallop Respiratory: no respiratory distress, no rales or rhonchi, clear to auscultation Gastrointestinal: soft, non-tender abdomen, no palpable masses Musculoskeletal: other (R leg weak) ICD10 Worksheet Patient Problems: Problems Problem Status Onset Confusion state Acute
[2017-05-26] MEDS ORDERED: IOPAMIDOL (ISOVUE-300) 100 ML BTL ONE (14:54)
--- NOTE | 2017-05-26 15:32 | PDMN ---
Medical Necessity Medical necessity: change to IP; los>2mn for ongoing eval and rx of hypertensive emergency, LE weakness; requires continued BP med adjustment, r/o pheo, MRI; hx recent teratoma and carcinoid tumor resection; per order and progress note 05/26/17
[2017-05-26] MEDS ORDERED: MELATONIN 3 MG TAB PO PRN (23:15)
[2017-05-27 04:54] LABS: PLATELET COUNT 266 10^3/uL (150-400)
[2017-05-27 07:35] VITALS: O2SAT 94
[2017-05-27] MEDS: DILTIAZEM CD 120 MG CAP PO SCH (09:00)
[2017-05-27] MEDS: CHOLECALCIFEROL VIT D3 1,000 UNITS TAB PO SCH (09:00)
[2017-05-27] MEDS: ASPIRIN EC 81 MG TAB PO SCH (09:01)
[2017-05-27] MEDS: LISINOPRIL 10 MG TAB PO SCH (09:01)
[2017-05-27] MEDS: MULTIVITAMINS 1 EACH TAB PO SCH (09:01)
--- NOTE | 2017-05-27 11:11 | ASMTCMCOM ---
CM Note CM Note Notes: Pt admitted with hypertensive emergency, encephalopathy & R leg weakness. Hx recent teratoma & carcinoid tumor resection. Pt normally resides independently & has a daughter that lives locally. PT recommending Outpatient Rehab. Awaiting OT eval. CM will continue to follow. Date Signed: 05/27/2017 11:11 AM Electronically Signed By:Bebe Coy RN
--- NOTE | 2017-05-27 11:15 | ASDISCHSUM ---
Discharge Information Plan Status:Home with No Needs Medically Cleared to Leave:05/26/2017 Discharge Date:05/26/2017 CM D/C Disposition:Home, Routine, Self-Care ADT D/C Disposition: Projected Discharge Date:05/27/2017 12:00 AM Transportation at D/C: Discharge Delay Reason: Follow-Up Date:05/27/2017 12:00 AM Discharge Slot: Final Diagnosis: Placement Information Patient Contact Information Contact Name:MARK Relationship:Daughter Address: Work Phone: City: [facility] Phone: State/Zip Code: Email: Financial Information Financial Class:Medicare Primary Plan Desc:MEDICARE INPATIENT Primary Plan Number:[id number] Secondary Plan Desc:MARTY Secondary Plan Number:[id number] Assessment Information [facility] CM Progress Note CM Note CM Note Notes: Pt admitted with hypertensive emergency, encephalopathy & R leg weakness. Hx recent teratoma & carcinoid tumor resection. Pt normally resides independently & has a daughter that lives locally. PT recommending Outpatient Rehab. Awaiting OT eval. CM will continue to follow. Date Signed: 05/27/2017 11:11 AM Electronically Signed By:Bebe Coy RN Case Management Discharge Plan Note Case Management Discharge Discharge Order Complete? Answers: Yes Patient to Obtain Answers: Independently Medications Transportation Arranged Answers: Family/Friends Family Notified Answers: No Notes: Pt to notify family Discharge Comments Notes: Dc order received. OT recommending home no needs. PT recommending Outpatient Rehab. Anticipate dc home independently. CM available if needs/changes. Intervention Information Intervention Type:*Incorrect Registration Date of Service:05/26/2017 10:45 AM Patient Type:Inpatient Staff Member:DONN Antunez Susan Hours: Discipline: Severity: Comment:
[2017-05-27] MEDS ORDERED: LISINOPRIL 10 MG TAB PO ONE (11:16)
[2017-05-27 11:41] VITALS: PULSE 74; RESP 17; TEMP 99.4
[2017-05-27 11:43] VITALS: BP 168/83
--- NOTE | 2017-05-27 12:46 | GDS ---
[f rep st] DISCHARGE SUMMARY ALL DIAGNOSES: 1. Acute encephalopathy. 2. Hypertensive emergency. 3. Right leg weakness. 4. History of a teratoma and carcinoid tumor, status post resection. HOSPITAL COURSE: A 71-year-old female, who presented with acute encephalopathy. This was felt to be due to hypertensive emergency with initial blood pressure of 207/116. Her encephalopathy resolved w ith better control of her blood pressure. She was seen by Neurology, who agrees with this. In terms of the etiology of her hypertension, she has underlying essential hypertension on lisinopril 10 mg and diltiazem 120 mg. She says that this has been stable for some time, although her dentist recently did note that she was quite hypertensive and canceled the procedure. She has an odd history of a teratoma encasing a carcinoid tumor that was resected at the [facility]. I am concerned that t here may be another neuroendocrine tumor such as a pheochromocytoma causing this. I have sent off ca techolamines and metanephrines which are pending at the time of discharge. Her cortisol was notably normal. Renin and aldosterone are also pending at the time of discharge. She has instructions to fo llow up with her primary care physician to follow up on these labs as well as ongoing management of h er hypertension. Notably I have increased her lisinopril from 10 mg daily to 20 mg daily, and she yao s not had any recurrence of extreme hypertension. She will also follow up with Dr. Rivera, oncolog ist in [place], to go over these labs in the case that this may be a pheochromocytoma. Copies also requested to Dr. Houston, her pool manager at the [facility]. At her discretion she may follow up with her as well. STUDIES PENDING AT THE TIME OF DISCHARGE: Include renin plasma activity, aldosterone level, 5-HIAA l evel, catecholamines, metanephrines, both urine and plasma. FOLLOWUP: 1. Dr. Ray, her PCP, in about [address] Rivera in about [address] Houston as needed. BILLING: I spent more than 30 minutes on the day of discharge coordinating care. Copy requested to: Dr. Houston [facility] Dr. Miguel Green /[id number]/MODL
== END 2017-05-27 14:57 | disposition home or self-care (01) | DRG 78 ==
LOC: INTOOBSV 19:04 → F3N 05-26 12:52 → OBSVTOIN 05-26 12:54
PROVIDERS: ADMIT Family Medicine; ATTEND Family Medicine
DX: I67.4 Hypertensive encephalopathy (principal); I16.1 Hypertensive emergency; R53.1 Weakness; Z96.643 Presence of artificial hip joint, bilateral; Z85.9 Personal history of malignant neoplasm, unspecified
CPT/HCPCS: 80305; 82088-90; 82384-90; 83497-90; 83835-90; 84244-90; 97116-GP; 97161-GP; 97166-GO; G0378; G0480; G8978-GP-CH; G8979-GP-CH; G8980-GP-CH; G8987-GO-CI; G8988-GO-CI; G8989-GO-CI; Q9967

== ENCOUNTER 2017-05-30 16:08 | Emergency (ER) | payer OTHER ==
[2017-05-30 16:23] VITALS: BP 161/89; PULSE 88; RESP 18; TEMP 98.1; O2SAT 98
[2017-05-30] MEDS ORDERED: LORazepam 1 MG TAB PO ONE (17:03)
--- NOTE | 2017-05-30 17:06 | EDPHY ---
H & P Stated Complaint: pt concerned for hypertension, nausea feelings of anxiety Time Seen by Provider: 05/30/17 16:37 HPI/ROS: CHIEF COMPLAINT: Anxiety HISTORY OF PRESENT ILLNESS: Patient is a 71-year-old female who is anxious about her fluctuating blood pressure. She was admitted a week ago for hypertensive emergency the cause some mental status changes. Her lisinopril was increased from 10-20 mg daily. She also takes diltiazem 120 mg. She states that in past she used to take 240. She has a history of carcinoid tumor and there was some concern about possible recurrence of neuroendocrine tumor. Workup for pheochromocytoma was initiated and she was referred to Oncology. She has an appoint with them in 1 month. She states that since then she has been taking a blood pressure 3 times a day and that she tends to become anxious when it is elevated and then it gets higher. She has not had headache, chest pain, shortness of breath or mental status changes. No fevers. They did check her thyroid also while she was in the hospital. No nausea vomiting. The highest blood pressure she saw today was 169/80. He she states however that that sometimes drops to 120/70. REVIEW OF SYSTEMS: Constitutional: denies: chills, fever, recent illness, recent injury EENTM: denies: blurred vision, double vision, nose congestion Respiratory: denies: cough, shortness of breath Cardiac: denies: chest pain, irregular heart rate, lightheadedness, palpitations Gastrointestinal/Abdominal: denies: abdominal pain, diarrhea, nausea, vomiting, blood streaked stools Genitourinary: denies: dysuria, frequency, hematuria, pain Musculoskeletal: denies: joint pain, muscle pain Skin: denies: lesions, rash, jaundice, bruising Neurological: denies: headache, numbness, paresthesia, tingling, dizziness, weakness Hematologic/Lymphatic: denies: blood clots, easy bleeding, easy bruising Immunologic/allergic: denies: HIV/AIDS, transplant EXAM: GENERAL: Well-appearing, well-nourished and in no acute distress. HEAD: Atraumatic, normocephalic. EYES: Pupils equal round and reactive to light, extraocular movements intact, sclera anicteric, conjunctiva are normal. ENT: TMs normal, nares patent, oropharynx clear without exudates. Moist mucous membranes. NECK: Normal range of motion, supple without lymphadenopathy or JVD. LUNGS: Breath sounds clear to auscultation bilaterally and equal. No wheezes rales or rhonchi. HEART: Regular rate and rhythm without murmurs, rubs or gallops. ABDOMEN: Soft, nontender, normoactive bowel sounds. No guarding, no rebound. No masses appreciated. BACK: No CVA tenderness, no spinal tenderness, step-offs or deformities EXTREMITIES: Normal range of motion, no pitting or edema. No clubbing or cyanosis. NEUROLOGICAL: Cranial nerves II through XII grossly intact. Normal speech, normal gait. 5/5 strength, normal movement in all extremities, normal sensation PSYCH: Normal mood, normal affect. SKIN: Warm, dry, normal turgor, no visible rashes or lesions. Source: Patient, Family Exam Limitations: No limitations - Personal History Current Tetanus/Diphtheria Vaccine: Unsure Current Tetanus Diphtheria and Acellular Pertussis (TDAP): Unsure - Medical/Surgical History Hx Asthma: No Hx Chronic Respiratory Disease: No Hx Diabetes: No Hx Cardiac Disease: No Hx Renal Disease: No Hx Cirrhosis: No Hx Alcoholism: No Hx HIV/AIDS: No Hx Splenectomy or Spleen Trauma: No Other PMH: bilat hip replacements, HTN,. divorticulitis, Tumor Resection Feb 2017. htn - Family History Significant Family History: No pertinent family hx - Social History Smoking Status: Former smoker Alcohol Use: Sober Constitutional: Initial Vital Signs Temperature (C) 36.7 C 05/30/17 16:21 Heart Rate 88 05/30/17 16:21 Respiratory Rate 18 05/30/17 16:21 Blood Pressure 161/89 H 05/30/17 16:21 O2 Sat (%) 98 05/30/17 16:21 O2 Delivery Mode Room Air Allergies/Adverse Reactions: balsam ran Allergy (Verified 08/30/16 23:56) gluten Allergy (Verified 05/26/17 12:59) Home Medications: Medication Instructions Recorded Diltiazem Cd [Cardizem ER 120 MG 120 mg PO DAILY 04/23/16 (*)] Aspirin EC [Aspirin EC 81 mg (*)] 81 mg PO DAILY 05/25/17 Cholecalciferol Vit D3 [Vitamin D3 2,000 units PO DAILY 05/25/17 (*)] Herbals/Supplements -Info Only 1 ea PO DAILY 05/25/17 Multivitamins [Multivitamin (*)] 1 each PO DAILY 05/25/17 Lisinopril [Zestril 20 mg (*)] 20 mg PO DAILY #30 tab 05/27/17 LORazepam [Ativan 1 mg (RX)] 0.5 mg PO Q6-8PRN PRN #20 tab 05/30/17 Medical Decision Making ED Course/Re-evaluation: The patient would like to try and anxious lytic. I will prescribe her very small dose of Ativan. I am hesitant to increase her blood pressure medication because sometimes her blood pressure is normal. I recommended she continue to keep track and follow up with her primary Dr Hanson. She declines further workup or testing at this time. She denies chest pain or headache. Differential Diagnosis: Partial list of the Differential diagnosis considered include but were not limited to; anxiety, hypertension and although unlikely based on the history and physical exam, I also considered tumor, CVA, infection. I discussed these differential diagnoses and the plan with the patient as well as the usual and expected course. The patient understands that the diagnosis is provisional and that in medicine we are not always correct and that further workup is often warranted. Usual and customary warnings were given. All of the patient's questions were answered. The patient was instructed to return to the emergency department should the symptoms at all worsen or return, otherwise to followup with the physician as we discussed. - Data Points Medications Given: Discontinued Medications Lorazepam (Ativan) 0.5 mg PO EDNOW ONE Stop: 05/30/17 17:04 Last Admin: 05/30/17 17:20 Dose: 0.5 mg Departure - Departure Disposition: Home, Routine, Self-Care Clinical Impression: Anxiety Hypertension Qualifiers: Hypertension type: unspecified Qualified Code(s): I10 - Essential (primary) hypertension Condition: Fair Instructions: Hypertension (ED), Anxiety (ED) Referrals: Dahiana Ray MD [Primary Care Provider] - As per Instructions Prescriptions: LORazepam [Ativan 1 mg (RX)] 0.5 mg PO Q6-8PRN PRN #20 tab PRN Reason: *Anxiety/Agitation/Insomnia
== END 2017-05-30 17:37 | disposition home or self-care (01) ==
DX: F41.9 Anxiety disorder, unspecified (principal); I10 Essential (primary) hypertension; Z87.891 Personal history of nicotine dependence; Z79.82 Long term (current) use of aspirin

== ENCOUNTER → 2017-06-10 | Outpatient (CLI) | payer OTHER | LOC: BMCIMAGING 07:57 | PROVIDERS: ATTEND Nurse Practitioner Family | DX: R53.83 Other fatigue (principal); I10 Essential (primary) hypertension ==

== ENCOUNTER → 2017-06-13 | Outpatient (CLI) | payer OTHER | LOC: BHFA 09:00 | PROVIDERS: ATTEND Internal Medicine Cardiovascular Disease | DX: R53.83 Other fatigue (principal) | CPT/HCPCS: 78452; 93017; A9500 ==

== ENCOUNTER → 2018-07-17 | Outpatient (CLI) | payer OTHER | LOC: FIMAGING 09:41 | PROVIDERS: ATTEND Family Medicine | DX: Z12.31 Encounter for screening mammogram for malignant neoplasm of breast (principal) ==